=== PATIENT | female | born 1955 | race Caucasian/White ===

== ENCOUNTER → 2016-11-20 | Outpatient (CLI) | payer OTHER ==
[~2016-11-20] MED LIST: GOOD NEIGHBOR P20 M1 PO; LISINOPRIL 5MG T5 MG NG; MINOCYCLINE 10100 MG PO; PREDNISONE 20MG20 MG PO; ROPINIROLE HYDRO1 M1 PO; SPIRONOLACTONE25 MG NG; SYNTHROID0.025 MG PO; TAMIFLU 75MG CA75 MG PO; TESSALON PERLE100 MG PO
[2016-11-20 13:42] LABS: HEMOGLOBIN 13.4 g/dL (12.2-16.2); LYMPH # 1.7 K/mm3 (0.7-4.5); LYMPH % 19.8 % (10-50.0)
[2016-11-20 15:05] LABS: BUN 21 mg/dL (7-18); FREE THYROXIN INDEX 8.4 ug/dl (5.93-13.13)
[2016-11-20 15:08] LABS: GFR (ESTIMATED) 46 ML/MIN (59-)
== END ==
LOC: LAB 13:28
PROVIDERS: Internal Medicine Adolescent Medicine
DX: M79.1 Myalgia (principal); G25.81 Restless legs syndrome